=== PATIENT | female | born 1975 ===

== ENCOUNTER 2018-03-23 17:26 | Emergency (ER) | payer OTHER, MEDICAID ==
[2018-03-23 17:32] VITALS: O2SAT 100
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
[2018-03-23 23:03] VITALS: BP 150/90; PULSE 84; RESP 18; TEMP 97.7
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
== END 2018-03-23 23:06 | disposition home or self-care (01) ==
LOC: H.ER 17:26
DX: M51.26 Other intervertebral disc displacement, lumbar region (principal); V43.52XA Car driver injured in collision with other type car in traffic accident, initial encounter; Y92.410 Unspecified street and highway as the place of occurrence of the external cause
CPT/HCPCS: 72125; 72128; 72131; 81025; 96372; 99285; J1885